=== PATIENT | male | born 1950 | race Caucasian/White ===

== ENCOUNTER 2017-06-21 13:35 | Emergency (ER) | payer MEDICARE, BC ==
[2017-06-21] MEDS ORDERED: methylPREDNISolone Sodium Succinate 125 MG/2 ML SDV IVPUSH ONE (13:43)
[2017-06-21] MEDS ORDERED: Rocuronium 100 MG/10 ML MDV IV ONE (13:45)
[2017-06-21] MEDS ORDERED: Succinylcholine 200 MG/10 ML MDV IV ONE (13:45)
[2017-06-21] MEDS ORDERED: Propofol 200 MG/20 ML SDV IV ONE (13:45)
--- NOTE | 2017-06-21 13:57 | EDM.PDOC ---
ED HPI GENERAL MEDICAL PROBLEM - General Stated Complaint: GENERAL WEAKNESS Time Seen by Provider: 06/21/17 13:35 Source of Information: Reports: Patient, EMS History Limitations: Reports: Respiratory Distress - History of Present Illness INITIAL COMMENTS - FREE TEXT/NARRATIVE: 66 y.o.w.m with H/O COPD was found by his daughter kneeing in front of the toilet barely catching his brath. It is not know, for how long the pt was in resp distress. As the pt arrived here in the ED, he was lethargic, GCS of 8, not responding to verbal stimuli, in severe resp distress, with audiple breath sounds. No family was present at the time. Pt had periorbital edema, bilat. BP 95/56 Pulse ox 86 on RA, PEERL. Intubation was initiated. Seamus arrived stating Intubation is OK but no chest compressions. Temp 36.8 RR 24 Pulse ox 87 % on 4 liters O2 by NC Onset: Today Onset Date: 06/20/17 Onset Time: 11:00 Duration: Hour(s):, Getting Worse Location: Reports: Chest, Generalized Quality: Reports: Other (sob) Severity: Severe Improves with: Reports: Medication Worsens with: Reports: Rest Context: Reports: Other (severe COPD) Associated Symptoms: Reports: Shortness of Breath, Weakness - Related Data Allergies Allergy/AdvReac Type Severity Reaction Status Date / Time No Known Allergies Allergy Verified 06/21/17 14:23 Home Meds: Home Meds Fluticasone/Salmeterol [Advair 250-50 Diskus] 06/21/17 [History] Umeclidinium [place] [Incruse Ellipta*] 06/21/17 [History] ED ROS GENERAL - Review of Systems Review Of Systems: Unable To Obtain (in RESP distress) ED EXAM, GENERAL - Physical Exam Exam: See Below Exam Limited By: Respiratory Distress General Appearance: Lethargic, Severe Distress, Thin Eye Exam: Bilateral Eye: EOMI, Normal Inspection Ears: Normal External Exam Ear Exam: Bilateral Ear: Auricle Normal Nose: Normal Inspection Throat/Mouth: Normal Lips, Perioral Cyanosis, Other (Airway compromise) Head: Atraumatic, Normocephalic, Facial Swelling (periorbital) Neck: Normal Inspection, Supple, Non-Tender Respiratory/Chest: Respiratory Distress, Decreased Breath Sounds (minimal airmovement), Accessory Muscle Use, Retractions, Prolonged Expiration Cardiovascular: Normal Peripheral Pulses, Regular Rate, Rhythm Peripheral Pulses: 2+: Carotid (R) GI/Abdominal: Normal Bowel Sounds, Soft (Male) Exam: Deferred Rectal (Males) Exam: Deferred Back Exam: Normal Inspection, Full Range of Motion Extremities: Normal Inspection, Normal Range of Motion, Non-Tender, No Pedal Edema, Normal Capillary Refill Neurological: Inattentive, Slow to Respond Psychiatric: Flat Affect Skin Exam: Warm, Dry, Cool, Cyanosis Lymphatic: No Adenopathy EKG INTERPRETATION EKG Date: 06/21/17 Time: 13:50 Rhythm: NSR Rate (Beats/Min): 92 [place]: Normal P-Wave: Present QRS: Normal ST-T: Normal QT: Normal Comparison: NA - No Prior EKG Course - Vital Signs Text/Narrative:: 66 y.o.w.m with H/O COPD was found by his daughter kneeing in front of the toilet barely catching his brath. It is not know, for how long the pt was in resp distress. As the pt arrived here in the ED, he was lethargic, GCS of 8, not responding to verbal stimuli, in severe resp distress, with audiple breath sounds. No family was present at the time. Pt had periorbital edema, bilat. BP 95/56 Pulse ox 86 on RA, PEERL. Intubation was initiated. Daughte arrived stating Intubation is OK but no chest compressions. Temp 36.8 RR 24 Pulse ox 87 % on 4 liters O2 by NC PE: Cachectic 66 y.o.w.m in severe resp distress Labs: Lactic acid 2.5 HGB, HCT and WBC were nl Na 147 K 4.1 Cl 97 BUN 25 Cr. 0.7 Biocar. 49 pH 7.45 Imaging: CXR Cuffed tube 2.5 cm above puja, COBD, no infiltrate seen, official report is pending Impression: Resp. distress, COPD exacerbation, Hypernatremia, Dehydration, DO NO Chest compression, Intubation OK, Septic picture(as per daughter) Tx: Intubation by anesthesia as per THOM byrne. Abx(levoquin). Levophed, Solumedrol, Duoneb. 1.55 pm Consultation: Dr. Caba, Intnsivist, [facility]: Accepted to be admitted to ICU Reexam: BP 105/76 pulse ox 96 puls 92 on transfer by fixed wing to [facility]. EMS did not feel comfortable to transport this pat. Family was present Last Recorded V/S: Last Vital Signs Temp 36.7 C 06/21/17 13:35 Pulse 97 06/21/17 13:35 Resp 28 H 06/21/17 13:35 BP 52/34 L 06/21/17 14:18 Pulse Ox 87 L 06/21/17 13:35 - Orders/Labs/Meds Orders: Active Orders 24 hr Category Date Time Status Larsen Catheter Insertion [Insert Urinary Catheter] [OM. Care 06/21/17 16:00 Ordered PC] Q24H Urinary Catheter Assessment [RC] QSHIFT Care 06/21/17 15:55 Active Chest 1V Frontal [CR] Stat Exams 06/21/17 14:05 Taken UA W/MICROSCOPIC [URIN] Stat Lab 06/21/17 15:37 Ordered Nasogastric Orogastric Tube Insertion [OM.PC] Routine Oth 06/21/17 15:55 Ordered EKG 12 Lead [EK] Routine Ther 06/21/17 13:45 Ordered Labs: Laboratory Tests 06/21/17 06/21/17 06/21/17 Range/Units 13:50 13:55 13:55 WBC 9.1 (4.5-12.0) X10-3/uL RBC 4.34 (4.30-5.75) x10(6)uL Hgb 13.2 (11.5-15.5) g/dL Hct 41.5 (30.0-51.3) % MCV 95.6 (80-96) fL MCH 30.4 (27.7-33.6) pg MCHC 31.8 L (32.2-35.4) g/dL RDW 13.2 (11.5-15.5) % Plt Count 116 L (125-369) X10(3)uL MPV 8.3 (7.4-10.4) fL Neut % (Auto) 76.2 (46-82) % Lymph % (Auto) 12.6 L (13-37) % Crane % (Auto) 8.2 (4-12) % Eos % (Auto) 0 L (1.0-5.0) % Baso % (Auto) 3 H (0-2) % Neut # (Auto) 7.1 (1.6-8.3) # Lymph # (Auto) 1.1 (0.6-5.0) # Crane # (Auto) 0.7 (0.0-1.3) # Eos # (Auto) 0.0 (0.0-0.8) # Baso # (Auto) 0.2 (0.0-0.2) # ABG pH (7.35-7.45) ABG pCO2 (35-45) mmHg ABG pO2 (83-108) mmHg ABG HCO3 (22-26) mmol/L ABG O2 Saturation (96-97) % ABG Base Excess (-2-2) Alexander Test O2 Delivery Device Sodium 147 H (135-145) mmol/L Potassium 4.7 (3.5-5.3) mmol/L Chloride 97 L (100-110) mmol/L Carbon Dioxide > 45 H* (21-32) mmol/L BUN 25 H (7-18) mg/dL Creatinine 0.7 (0.70-1.30) mg/dL Est Cr Clr Drug Dosing TNP Estimated GFR (MDRD) > 60 (>60) BUN/Creatinine Ratio 35.7 H (9-20) Glucose 118 H (80-116) mg/dL Lactic Acid (0.4-2.2) mmol/L Calcium 9.2 (8.6-10.2) mg/dL Creatine Kinase 73 (60-160) IU/L Troponin I (<0.017-0.056) ng/mL NT-Pro-B Natriuret Pep 1593 H* (<=125) pg/mL Urine Color (YELLOW) Urine Appearance (CLEAR) Urine pH (5.0-6.5) Ur Specific [place] (1.010-1.025) Urine Protein (NEGATIVE) mg/dL Urine Glucose (UA) (NEGATIVE) mg/dL Urine Ketones (NEGATIVE) mg/dL Urine Occult Blood (NEGATIVE) Urine Nitrite (NEGATIVE) Urine Bilirubin (NEGATIVE) Urine Urobilinogen (NEGATIVE) mg/dL Ur Leukocyte Esterase (NEGATIVE) Urine RBC (0) Urine WBC (0) Ur Squamous Epith Cells (NS,R,O) Urine Bacteria (NS) Fine Granular Casts (NS) Urine Mucus (NS) 06/21/17 06/21/17 06/21/17 Range/Units 13:55 14:24 15:05 WBC (4.5-12.0) X10-3/uL RBC (4.30-5.75) x10(6)uL Hgb (11.5-15.5) g/dL Hct (30.0-51.3) % MCV (80-96) fL MCH (27.7-33.6) pg MCHC (32.2-35.4) g/dL RDW (11.5-15.5) % Plt Count (125-369) X10(3)uL MPV (7.4-10.4) fL Neut % (Auto) (46-82) % Lymph % (Auto) (13-37) % Crane % (Auto) (4-12) % Eos % (Auto) (1.0-5.0) % Baso % (Auto) (0-2) % Neut # (Auto) (1.6-8.3) # Lymph # (Auto) (0.6-5.0) # Crane # (Auto) (0.0-1.3) # Eos # (Auto) (0.0-0.8) # Baso # (Auto) (0.0-0.2) # ABG pH 7.42 (7.35-7.45) ABG pCO2 77 H* (35-45) mmHg ABG pO2 514 H (83-108) mmHg ABG HCO3 49 H (22-26) mmol/L ABG O2 Saturation 100 H (96-97) % ABG Base Excess 20.3 H (-2-2) Alexander Test Not performed O2 Delivery Device Ventilator Sodium (135-145) mmol/L Potassium (3.5-5.3) mmol/L Chloride (100-110) mmol/L Carbon Dioxide (21-32) mmol/L BUN (7-18) mg/dL Creatinine (0.70-1.30) mg/dL Est Cr Clr Drug Dosing Estimated GFR (MDRD) (>60) BUN/Creatinine Ratio (9-20) Glucose (80-116) mg/dL Lactic Acid 2.5 H (0.4-2.2) mmol/L Calcium (8.6-10.2) mg/dL Creatine Kinase (60-160) IU/L Troponin I < 0.017 L (<0.017-0.056) ng/mL NT-Pro-B Natriuret Pep (<=125) pg/mL Urine Color (YELLOW) Urine Appearance (CLEAR) Urine pH (5.0-6.5) Ur Specific [place] (1.010-1.025) Urine Protein (NEGATIVE) mg/dL Urine Glucose (UA) (NEGATIVE) mg/dL Urine Ketones (NEGATIVE) mg/dL Urine Occult Blood (NEGATIVE) Urine Nitrite (NEGATIVE) Urine Bilirubin (NEGATIVE) Urine Urobilinogen (NEGATIVE) mg/dL Ur Leukocyte Esterase (NEGATIVE) Urine RBC (0) Urine WBC (0) Ur Squamous Epith Cells (NS,R,O) Urine Bacteria (NS) Fine Granular Casts (NS) Urine Mucus (NS) 06/21/17 Range/Units 15:37 WBC (4.5-12.0) X10-3/uL RBC (4.30-5.75) x10(6)uL Hgb (11.5-15.5) g/dL Hct (30.0-51.3) % MCV (80-96) fL MCH (27.7-33.6) pg MCHC (32.2-35.4) g/dL RDW (11.5-15.5) % Plt Count (125-369) X10(3)uL MPV (7.4-10.4) fL Neut % (Auto) (46-82) % Lymph % (Auto) (13-37) % [place] % (Auto) (4-12) % Eos % (Auto) (1.0-5.0) % Baso % (Auto) (0-2) % Neut # (Auto) (1.6-8.3) # Lymph # (Auto) (0.6-5.0) # Crane # (Auto) (0.0-1.3) # Eos # (Auto) (0.0-0.8) # Baso # (Auto) (0.0-0.2) # ABG pH (7.35-7.45) ABG pCO2 (35-45) mmHg ABG pO2 (83-108) mmHg ABG HCO3 (22-26) mmol/L ABG O2 Saturation (96-97) % ABG Base Excess (-2-2) Alexander Test O2 Delivery Device Sodium (135-145) mmol/L Potassium (3.5-5.3) mmol/L Chloride (100-110) mmol/L Carbon Dioxide (21-32) mmol/L BUN (7-18) mg/dL Creatinine (0.70-1.30) mg/dL Est Cr Clr Drug Dosing Estimated GFR (MDRD) (>60) BUN/Creatinine Ratio (9-20) Glucose (80-116) mg/dL Lactic Acid (0.4-2.2) mmol/L Calcium (8.6-10.2) mg/dL Creatine Kinase (60-160) IU/L Troponin I (<0.017-0.056) ng/mL NT-Pro-B Natriuret Pep (<=125) pg/mL Urine Color Yellow (YELLOW) Urine Appearance Clear (CLEAR) Urine pH 6.5 (5.0-6.5) Ur Specific [place] 1.015 (1.010-1.025) Urine Protein 30 H (NEGATIVE) mg/dL Urine Glucose (UA) Normal (NEGATIVE) mg/dL Urine Ketones Negative (NEGATIVE) mg/dL Urine Occult Blood Moderate H (NEGATIVE) Urine Nitrite Negative (NEGATIVE) Urine Bilirubin Small H (NEGATIVE) Urine Urobilinogen 1 H (NEGATIVE) mg/dL Ur Leukocyte Esterase Negative (NEGATIVE) Urine RBC 5-10 (0) Urine WBC 0-5 (0) Ur Squamous Epith Cells Few H (NS,R,O) Urine Bacteria Few H (NS) Fine Granular Casts Occasional H (NS) Urine Mucus Moderate H (NS) Meds: Medications Discontinued Medications Generic Name Dose Route Start Last Admin Trade Name Freq PRN Reason Stop Dose Admin Levofloxacin/Dextrose 500 mg/ 100 mls @ 100 mls/hr 06/21/17 14:04 06/21/17 14 :25 Premix IV 06/21/17 15:03 100 mls/hr ONETIME ONE Administration Levofloxacin/Dextrose Confirm 06/21/17 14:22 06/21/17 14:39 Levaquin In D5w 500 Mg/100 Ml Administered 06/21/17 14:23 Not Given Dose 100 mls @ as directed IV .STK-MED ONE Norepinephrine Bitartrate 4 mg 250 mls @ 7.5 mls/hr 06/21/17 14:18 06/21/17 14:18 / Dextrose/Water IV 2 mcg/min TITRATE BRADY 7.5 mls/hr Administration Protocol 2 MCG/MIN Methylprednisolone Sodium Succinate 125 mg 06/21/17 13:43 06/21/17 14:00 Solu-Medrol IVPUSH 06/21/17 13:44 125 mg ONETIME ONE Administration Midazolam HCl Confirm 06/21/17 14:30 06/21/17 15:08 Versed 1 Mg/Ml Administered 06/21/17 14:31 2 mg Dose Administration 2 mg .ROUTE .STK-MED ONE Midazolam HCl 2 mg 06/21/17 14:31 06/21/17 14:32 Versed 1 Mg/Ml IVPUSH 06/21/17 14:32 2 mg ONETIME ONE Administration Departure - Departure Time of Disposition: 16:25 Disposition: DC/Tfer to Acute Hospital 02 Condition: Fair Clinical Impression: Respiratory distress, COPD exacerbation - Discharge Information Referrals: PCP,None [Primary Care Provider] - Forms: ED Department Discharge - My Orders Last 24 Hours: My Active Orders 06/21/17 13:45 EKG 12 Lead [EK] Routine 06/21/17 14:05 Chest 1V Frontal [CR] Stat 06/21/17 15:37 UA W/MICROSCOPIC [URIN] Stat 06/21/17 15:55 Urinary Catheter Assessment [RC] QSHIFT Nasogastric Orogastric Tube Insertion [OM.PC] Routine 06/21/17 16:00 Larsen Catheter Insertion [Insert Urinary Catheter] [OM.PC] Q24H - Assessment/Plan Last 24 Hours: My Active Orders 06/21/17 13:45 EKG 12 Lead [EK] Routine 06/21/17 14:05 Chest 1V Frontal [CR] Stat 06/21/17 15:37 UA W/MICROSCOPIC [URIN] Stat 06/21/17 15:55 Urinary Catheter Assessment [RC] QSHIFT Nasogastric Orogastric Tube Insertion [OM.PC] Routine 06/21/17 16:00 Larsen Catheter Insertion [Insert Urinary Catheter] [OM.PC] Q24H
[2017-06-21] MEDS ORDERED: Levofloxacin/Dextrose 5%-Water 500 MG in Premix Bag 1 BAG IV ONE (14:04)
[2017-06-21] MEDS: Sodium Chloride 0.9% 1,000 ML IV SCH ×2 (14:13→16:15)
[2017-06-21] MEDS ORDERED: Norepinephrine 4 MG in Dextrose 5% in Water 246 ML IV SCH ×2 (14:18)
[2017-06-21] MEDS ORDERED: Levofloxacin/Dextrose 5%-Water 100 ML IV ONE (14:22)
[2017-06-21] MEDS ORDERED: Midazolam 1 MG/ML 2 ML SDV IVPUSH ONE ×2 (14:31→15:00)
[2017-06-21] MEDS: Midazolam 1 MG/ML 2 ML SDV ONE ×2 (14:39→15:08)
[2017-06-21] MEDS ORDERED: Sodium Chloride 0.9% 1,000 ML IV ONE (14:50)
--- NOTE | 2017-06-24 13:46 | CR ---
INDICATION: Intubation. CHEST: A single supine portable view of the chest was obtained excluding the lowermost chest. The endotracheal tube appears to be in adequate position. The lungs appear to be hyperaerated. The heart is normal in size and shape. The aorta is calcified in the arch area slightly. Overlying EKG leads are noted. A nodular density in the right mid lung field is likely a scar, but should be correlated clinically and compared with previous chest x-rays if available to exclude the possibility of neoplasia. IMPRESSION: 1. Adequate position of endotracheal tube. 2. ASD aorta. 3. COPD is likely - correlate clinically. 4. Somewhat nodular density in the right mid lung field is noted of questionable etiology - if old films are available for comparison, they may be of further diagnostic benefit. MTDD
== END 2017-06-21 16:25 ==
LOC: FB.ED 13:35
DX: J44.1 Chronic obstructive pulmonary disease with (acute) exacerbation (principal); R06.03 Acute respiratory distress; E87.0 Hyperosmolality and hypernatremia; E86.0 Dehydration
CPT/HCPCS: 31500; 36600; 51702; 71045; 80048; 81001; 82550; 82803; 83605; 83880; 84484; 85025; 93005; 93010; 96360; 96365; 96366; 96368; 96375; 99291; J0330; J1956; J2250; J2704; J2930; J7040; J7060; 43752